=== PATIENT | male | born 1955 | race Two or more races ===

== ENCOUNTER 2018-05-22 10:11 | Inpatient (IN) | payer SELFPAY ==
[~2018-05-22] VITALS: Ht 167.6 cm; Wt 49.9 kg
[2018-05-22 11:48] LABS: HEMATOCRIT. 40.1 % (42.0-52.0); HEMOGLOBIN. 13.4 g/dL (14.0-18.0); MEAN CORPUSCULAR VOLUME 89.8 fL (80.0-94.0); MEAN PLATELET VOLUME 8.3 fl (7.4-10.4); PLATELET 242 x1000/uL (130-400); RED BLOOD CELL COUNT 4.46 mill/uL (4.7-6.1); RED CELL DISTRIBUTION WIDTH 14.2 % (11.6-14.6)
[2018-05-22 11:56] LABS: CHLORIDE 104 mEq/L (98-107)
[2018-05-22 11:57] LABS: INR 1.1; PARTIAL THROMBOPLASTIN TIME 26.8 sec (23.4-31.0); PROTHROMBIN TIME 10.6 sec (9.1-11.1)
[2018-05-22 12:05] LABS: CREATINE KINASE MB FRACTION 2.4 ng/mL (0.5-3.6); ETHANOL BLOOD < 10 mg/dL
[2018-05-22 12:44] LABS: PLATELET ESTIMATE NORMAL
[2018-05-22] MEDS ORDERED: IBUPROFEN 600MG TABLET PO ONE (12:45)
[2018-05-22] MEDS ORDERED: ALBUTEROL (0.083%) 2.5MG/3ML NEB HHN STA (13:26)
[2018-05-22] MEDS ORDERED: IPRATROPIUM BROMIDE (0.02%) 0.5MG/2.5ML NEB HHN STA (13:26)
[2018-05-22] MEDS ORDERED: ACETAMINOPHEN 325MG TABLET PO PRN ×2 (13:30→14:30)
[2018-05-22] MEDS ORDERED: NITROGLYCERIN 0.4MG TABLET SL SL PRN (14:30)
[2018-05-22] MEDS ORDERED: ONDANSETRON HCL 4MG/2ML INJ IV PRN (14:30)
[2018-05-22] MEDS ORDERED: CLONIDINE 0.1MG TABLET PO PRN (14:30)
[2018-05-22] MEDS ORDERED: DOCUSATE SODIUM 100MG CAPSULE PO PRN (14:30)
[2018-05-22] MEDS ORDERED: LORAZEPAM 0.5MG TABLET PO PRN (14:30)
[2018-05-22] MEDS ORDERED: IPRATROPIUM/ALBUTEROL 0.5-3(2.5)MG/3ML NEB INH PRN (14:30)
[2018-05-22] MEDS ORDERED: MAGNESIUM/ALUMINUM HYDROXIDE/SIMETHICONE 30ML UDC PO PRN (14:30)
[2018-05-22] MEDS ORDERED: GUAIFENESIN 200MG/10ML SUGAR FREE UDC PO PRN (14:30)
[2018-05-22] MEDS ORDERED: ZOLPIDEM TARTRATE 5MG TABLET PO PRN (14:30)
[2018-05-22] MEDS ORDERED: CARBIDOPA/LEVODOPA 10/100MG TABLET PO ONE (15:15)
[2018-05-22] MEDS ORDERED: ENTACAPONE 200MG TABLET PO ONE (15:15)
[2018-05-22] MEDS ORDERED: PRAMIPEXOLE DI-HCL 0.125MG TABLET PO SCH (15:15)
[2018-05-22 16:43] LABS: FOLIC ACID (FOLATE) SERUM 17.8 ng/mL (>5.38)
[2018-05-22] MEDS ORDERED: CARBIDOPA/LEVODOPA 25/100MG TABLET PO SCH (16:44)
[2018-05-22] MEDS ORDERED: KETOROLAC 15MG/ML VIAL IV PRN (16:44)
[2018-05-22 16:45] VITALS: BP 136/86
[2018-05-22] MEDS ORDERED: NA PHOS,M-B/NA PHOS,DI-BA ENEMA 118ML PR PRN (17:00)
[2018-05-22] MEDS ORDERED: ENOXAPARIN 40MG/0.4ML SYR SUBCUT SCH (17:00)
[2018-05-22] MEDS ORDERED: CYANOCOBALAMIN 1000MCG/ML VIAL IM SCH (18:15)
[2018-05-22 18:36] VITALS: BP 136/86
[2018-05-22] MEDS ORDERED: METOPROLOL TARTRATE 25MG TABLET PO SCH (21:00)
[2018-05-22] MEDS ORDERED: FAMOTIDINE 20MG TABLET PO SCH (21:00)
== END 2018-05-22 19:50 | disposition left against medical advice (07) | DRG 42 ==
LOC: ER 10:33 → 7WST 13:34 → EDBEDREQ 13:38 → EDBEDREQTM 13:38 → ENRESERV 13:56 → CANRESERV 13:56 → ENRESERV 14:44
PROVIDERS: ADMIT Internal Medicine; ATTEND Internal Medicine
DX: G20 Parkinson's disease (principal); E53.8 Deficiency of other specified B group vitamins; F17.210 Nicotine dependence, cigarettes, uncomplicated; I10 Essential (primary) hypertension; J44.9 Chronic obstructive pulmonary disease, unspecified; M60.9 Myositis, unspecified; Z53.21 Procedure and treatment not carried out due to patient leaving prior to being seen by health care provider
CPT/HCPCS: 36415; 71045; 72170; 73552; 80061; 82553; 82607; 82746; 83036; 83540; 83550; 83605; 83880; 84484; 93005; 94640; 99285; G0482; J1650; J7611